=== PATIENT | female | born 1935 | race Caucasian/White ===

== ENCOUNTER → 2020-03-22 12:31 | Outpatient (BNVA) | payer MEDICARE, OTHER, SELFPAY | PROVIDERS: Family Provider Family Medicine; PCP Family Medicine; Visit Provider Dermatology | DX: B00.2 Herpesviral gingivostomatitis and pharyngotonsillitis (principal) | CPT/HCPCS: 87529 ==

== ENCOUNTER 2021-06-15 02:37 | Inpatient (IN) | payer MEDICARE, OTHER, SELFPAY ==
[2021-06-15] VITALS (16 sets, daily range): BP systolic 100–161; BP diastolic 37–77; PULSE 60–71; RESP 14–20; TEMP 36.4–37.1; O2SAT 89–99; BMI 27.4
--- NOTE | 2021-06-15 02:40 | CTR_ITS ---
PROCEDURE INFORMATION: Exam: CT Abdomen And Pelvis With Contrast Exam date and time: 06/15/2021 3:34 AM Age: 85 years old Clinical indication: Nausea and vomiting; Prior surgery; Surgery type: Hysterectomy. ; Patient HX: C/O of severe n/v with diarrhea. ; Additional info: Abd pain TECHNIQUE: Imaging protocol: Computed tomography of the abdomen and pelvis with contrast. Radiation optimization: All CT scans at this facility use at least one of these dose optimization techniques: automated exposure control; mA and/or kV adjustment per patient size (includes targeted exams where dose is matched to clinical indication); or iterative reconstruction. Contrast material: OMNI 300; Contrast volume: 95 ml; Contrast route: INTRAVENOUS (IV); COMPARISON: CR Abdomen Series Acute [id number] 01/15/2017 7:57 PM RADIATION DOSE METRICS: Total DLP (mGy-cm): 1401.94 FINDINGS: Lungs: There are hazy and strandy opacities present in the lower lobes bilaterally likely representing atelectasis versus parenchymal and pleural scarring. There is a 7.7 mm pulmonary nodularity seen in the right lung base posteriorly. Liver: There are small hypoattenuation cystic lesions seen within the liver, the largest seen in the left hepatic lobe measuring 7.7 mm. Gallbladder and bile ducts: Normal. No calcified stones. No ductal dilation. Pancreas: Normal. No ductal dilation. Spleen: Normal. No splenomegaly. Adrenal glands: Normal. No mass. Kidneys and ureters: Normal. No hydronephrosis. Stomach and bowel: There are nondilated small bowel loops present containing fluid and some air-fluid levels and air-fluid level seen in the ascending colon, findings may represent a diffuse ileus. Appendix: The appendix is visualized and is normal in configuration. Intraperitoneal space: Unremarkable. No free air. No significant fluid collection. Arteries: Unremarkable. No abdominal aortic aneurysm. Lymph nodes: Unremarkable. No enlarged lymph nodes. Urinary bladder: Unremarkable as visualized. Reproductive: Status post hysterectomy. 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 Soft tissues: Unremarkable. CT/CT abdomen pelvis w con* [id number] IMPRESSION: 1. Nondilated small and large bowel loops containing fluid and air fluid levels could represent a diffuse ileus. 2. Multiple small benign hepatic cysts are seen, the largest seen in the left hepatic lobe measuring 7.7 mm. No further workup needed. 3. A 7.7 mm pulmonary nodularity is present in the right lung base posteriorly. For patients at low risk (minimal or absent history of smoking and of other known risk factors), recommend CT Chest at 6-12 months, then consider CT Chest at 18-24 months. For patients at high risk (history of smoking or of other known risk factors), recommend CT Chest at 6-12 months, then CT Chest at 18-24 months. (Reference: Shaila) REFERENCES: Shaila Roberts, et al. Guidelines for Management of Incidental Pulmonary Nodules Detected on CT Images: From the Fleischner Society 2017. Radiology. 2017;284(1):228-243.
--- NOTE | 2021-06-15 02:41 | W.ED.NAVMDI ---
HPI - Nausea/Vomiting/Diarrhea General: Chief complaint: Nausea/Vomiting/Diarrhea Stated complaint: N/V/D Time Seen by Provider: 06/15/21 02:39 Source: patient Mode of arrival: ambulatory Limitations: no limitations History of Present Illness: 85-year-old female who states that since 9 PM has had extreme nausea vomiting and diarrhea. States she had all multiple episodes of vomiting with no improvement. States she is having abdominal cramping from the vomiting as well. She denies any fevers denies any worsening improving factors. Denies any blood in her vomit or stool. Denies any chest pain or shortness of breath Associated nausea: Yes Associated symtoms: Reports nausea; Denies chest pain, dysuria or headache(s) Review of Systems Const: Denies: fever(s), chills, body aches or change in appetite Eyes: Denies: blurry vision or eye discomfort ENMT: Denies: throat pain or dental pain Card: Denies: chest pain Resp: Denies: dyspnea GI: Reports: nausea, vomiting and diarrhea : Denies: dysuria Musc: Denies: neck pain or back pain Skin/Breast: Denies: rash Neuro: Denies: headache(s) Psych: Denies: depression Jarad/Lymph: Denies: easy bruising All/Imm: Denies: urticaria PFSH ED PFSH: Medical History HTN (hypertension) Hyperlipidemia Hypothyroid Surgical History H/O: hysterectomy Family History Other Cancer Hypertension Social History Smoking and tobacco status: never smoked Alcohol intake: never Physical Exam Const: COMMON NORMALS: no acute distress, patient oriented x3 and healthy appearing HENMT: COMMON NORMALS: normocephalic and atraumatic HEAD & SCALP: normocephalic and atraumatic Eye: COMMON NORMALS: Equal, round and reactive pupils present and EOMs intact bilaterally PUPIL: Yes Equal, round and reactive pupils present Neck/C-Spine: COMMON NORMALS: full ROM and supple Chest: COMMONS NORMALS: normal inspection of the chest and normal palpation of entire chest wall Resp: COMMON NORMALS: normal respiratory effort, No retractions, No use of accessory muscles and clear to auscultation bilaterally AUSCULTATION: clear to auscultation bilaterally Cardio: COMMON NORMALS: regular rate, regular rhythm and No murmurs present (Cardio) RATE: regular rate RHYTHM: regular rhythm GI: COMMON NORMALS: Normal to inspection, nondistended, normoactive bowel sounds present, Soft to palpation, non-tender and no masses PALPATION: Yes Soft to palpation Extremity: COMMON NORMALS: normal to inspection and full ROM Neuro: COMMON NORMALS: patient oriented x3, moves all extremities and no focal motor deficits Psych: COMMON NORMALS: mental status grossly normal, Normal thought process present and cooperative THOUGHT PROCESS: Normal thought process present Skin: COMMON NORMALS: no rashes or lesions noted and no wounds GENERAL SKIN EXAM: no rashes or lesions noted Course Vital Signs: Vital signs: Vital Signs Temperature 98.7 F 06/15/21 02:39 Pulse Rate 61 06/15/21 05:00 Respiratory Rate 20 H 06/15/21 05:00 Blood Pressure 129/56 06/15/21 05:00 Pulse Oximetry 97 06/15/21 05:00 MDM - Nausea/Vomiting/Diarrhea Medical Decision Making Patient presents here with vomiting along with diarrhea she is feeling improved here after fluids and nausea medicine. She still has quite a bit of weakness. I did try to ambulate her in her room and she could only take 2 steps she states she felt too weak to walk. She does live home alone likely having some weakness due to dehydration she has no signs of a stroke here no headache. I spoke to hospitalist and will admit for observation. Lab Data : 06/15/21 02:30 06/15/21 02:30 Radiology Impressions Abdomen/Pelvis CT 06/15/21 02:40 IMPRESSION: 1. Nondilated small and large bowel loops containing fluid and air fluid levels could represent a diffuse ileus. 2. Multiple small benign hepatic cysts are seen, the largest seen in the left hepatic lobe measuring 7.7 mm. No further workup needed. 3. A 7.7 mm pulmonary nodularity is present in the right lung base posteriorly. For patients at low risk (minimal or absent history of smoking and of other known risk factors), recommend CT Chest at 6-12 months, then consider CT Chest at 18-24 months. For patients at high risk (history of smoking or of other known risk factors), recommend CT Chest at 6-12 months, then CT Chest at 18-24 months. (Reference: Shaila) REFERENCES: Shaila Roberts et al. Guidelines for Management of Incidental Pulmonary Nodules Detected on CT Images: From the Fleischner Society 2017. Radiology. 2017;284(1):228-243. Chest X-Ray 06/15/21 04:22 IMPRESSION: Indistinct pulmonary vasculature and some increased interstitial opacities predominately in the mid lower hemithoraces suggests pulmonary edema. Laboratory Results WBC 9.3 10^3/uL (4.0-10.0) 06/15/21 02:30 RBC 4.44 10^6/uL (4.1-5.3) 06/15/21 02:30 Hgb 13.5 g/dL (11.5-15.3) 06/15/21 02:30 Hct 40.9 % (37.0-47.0) 06/15/21 02:30 MCV 92.1 fl (81-99) 06/15/21 02:30 MCH 30.4 pg (28.0-34.0) 06/15/21 02:30 MCHC 33.0 g/dL (30.0-36.0) 06/15/21 02:30 RDW 12.3 % (12.1-15.1) 06/15/21 02:30 Plt Count 232 10^3/cmm (130-400) 06/15/21 02:30 MPV 8.7 fL (7.4-10.4) 06/15/21 02:30 Neut % (Auto) 87.9 % 06/15/21 02:30 Lymph % (Auto) 6.7 % 06/15/21 02:30 [place] % (Auto) 4.5 % 06/15/21 02:30 Eos % (Auto) 0.2 % 06/15/21 02:30 Baso % (Auto) 0.3 % 06/15/21 02:30 Neut # (Auto) 8.20 10^3/uL (1.8-7.7) H 06/15/21 02:30 Lymph # (Auto) 0.6 10^3/uL (0.8-4.8) L 06/15/21 02:30 [place] # (Auto) 0.4 10^3/uL (0.2-0.9) 06/15/21 02:30 Eos # (Auto) 0.0 10^3/uL (0.0-0.8) 06/15/21 02:30 Baso # (Auto) 0.0 10^3/uL (0.0-0.1) 06/15/21 02:30 Nucleated RBC % (auto) 0 % 06/15/21 02:30 Nucleated RBCs # 0.0 /100WBC 06/15/21 02:30 Sodium 132 mmol/L (136-145) L 06/15/21 02:30 Potassium 3.8 mmol/L (3.5-5.1) 06/15/21 02:30 Chloride 96 mmol/L (98-107) L 06/15/21 02:30 Carbon Dioxide 25 mmol/L (22-29) 06/15/21 02:30 Anion Gap 14.8 (5-19) 06/15/21 02:30 BUN 16 mg/dL (8-23) 06/15/21 02:30 Creatinine 0.6 mg/dL (0.5-0.9) 06/15/21 02:30 GFR Calculation Not Reportable 06/15/21 02:30 Glucose 158 mg/dL (65-115) H 06/15/21 02:30 Calculated Osmolality 278 mOsm/kg (285-295) L 06/15/21 02:30 Calcium 8.6 mg/dL (8.5-10.5) 06/15/21 02:30 Total Bilirubin 0.4 mg/dL (0.15-1.2) 06/15/21 02:30 AST 21 U/L (0-32) 06/15/21 02:30 ALT 15 U/L (0-33) 06/15/21 02:30 Alkaline Phosphatase 82 IU/L (35-105) 06/15/21 02:30 Troponin T Baseline 12 ng/L (0-10) H 06/15/21 02:30 Troponin T 120 Minute 12.48 ng/L (0-10) H 06/15/21 04:30 Delta Troponin T 0.48 ABS# (0-10) 06/15/21 04:30 NT-Pro-B Natriuret Pep 288 pg/mL (0-450) 06/15/21 02:30 Total Protein 6.9 g/dL (6.6-8.7) 06/15/21 02:30 Albumin 5.0 g/dL (3.5-5.2) 06/15/21 02:30 Globulin 1.9 g/dL (1.3-4.6) 06/15/21 02:30 Lipase 22 U/L (13-60) 06/15/21 02:30 Urine Color Yellow (Yellow) 06/15/21 04:00 Urine Appearance Clear (CLEAR) 06/15/21 04:00 Urine pH 7 (5-7) 06/15/21 04:00 Ur Specific [place] 1.010 (1.005-1.030) 06/15/21 04:00 Urine Protein Neg (Negative) 06/15/21 04:00 Urine Glucose (UA) Trace (Normal) H 06/15/21 04:00 Urine Ketones Negative (Negative) 06/15/21 04:00 Urine Blood Neg (Negative) 06/15/21 04:00 Urine Nitrate Negative (Negative) 06/15/21 04:00 Urine Bilirubin Neg (Negative) 06/15/21 04:00 Urine Urobilinogen Norm mg/dL (Negative) 06/15/21 04:00 Ur Leukocyte Esterase Negative (Negative) 06/15/21 04:00 EKG Data EKG 1: I personally reviewed and interpreted this EKG as follows: EKG interpretation date: 06/15/21 EKG interpretation time: 04:32 Interpretation: sinus alina hr [address] or t wave abnormalities qrs 922 qtc 428 Discharge Plan Discharge Patient Disposition: Admitted As Inpatient Clinical Impression: Vomiting, Diarrhea, Weakness Condition: Stable Discharge Diet: Advance as tolerated Discharge Activity: Resume usual activity Coding Level of Care Code ED Shearing Machine Tender for Chg Fwd Exam Comprehensive
[2021-06-15] MEDS: ondansetron 2 mg/ML SDV 2 mL 4 MG IVP ×2 (02:49→04:14)
[2021-06-15] MEDS: sodium chloride 0.9% 1,000 ML 999 ML IV (02:49)
[2021-06-15 02:50] LABS: Basophils % 0.3 %; Eosinophils % 0.2 %; Hematocrit 40.9 % (37.0-47.0); Hemoglobin 13.5 g/dL (11.5-15.3); Lymphocytes # 0.6 10^3/uL (0.8-4.8); Lymphocytes % 6.7 %; Mean Corpuscular Hemoglobin 30.4 pg (28.0-34.0); Mean Corpuscular Volume 92.1 fl (81-99); Mean Platelet Volume 8.7 fL (7.4-10.4); Monocytes # 0.4 10^3/uL (0.2-0.9); Monocytes % 4.5 %; Neutrophils % 87.9 %; Nucleated Red Blood Cells % 0 %; Platelet Count 232 10^3/cmm (130-400); Red Blood Count 4.44 10^6/uL (4.1-5.3); Red Cell Distribution Width 12.3 % (12.1-15.1); White Blood Count 9.3 10^3/uL (4.0-10.0)
[2021-06-15] MEDS: morphine 4 mg/mL SDV 1 mL IVP (02:50)
[2021-06-15 03:07] LABS: Alanine Aminotransferase 15 U/L (0-33); Alkaline Phosphatase 82 IU/L (35-105); Anion Gap 14.8 (5-19); Aspartate Amino Transferase 21 U/L (0-32); Blood Urea Nitrogen 16 mg/dL (8-23); Calcium 8.6 mg/dL (8.5-10.5); Carbon Dioxide 25 mmol/L (22-29); Chloride 96 mmol/L (98-107); Globulin 1.9 g/dL (1.3-4.6); Glucose 158 mg/dL (65-115); Lipase 22 U/L (13-60); Osmolality Calculated 278 mOsm/kg (285-295); Potassium 3.8 mmol/L (3.5-5.1); Sodium 132 mmol/L (136-145); Total Bilirubin 0.4 mg/dL (0.15-1.2); Total Protein 6.9 g/dL (6.6-8.7)
[2021-06-15] MEDS: iohexol 300 mg/mL 100 mL Btl IV (03:36)
[2021-06-15 04:17] LABS: Add Urine Microscopic? NO; Charge for UA Resulting for Rev
--- NOTE | 2021-06-15 04:21 | ECG_ITS ---
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 Measurements Intervals [place] Rate: 56 P: 62 CT: 188 QRS: -16 QRSD: 92 T: -20 QT: 435 QTc: 423 Interpretive Statements SINUS BRADYCARDIA NONSPECIFIC ST & T-WAVE ABNORMALITY Compared to ECG 01/26/2017 19:16:01 T-wave abnormality now present ST (T wave) deviation no longer present Electronically Signed On 06-15-2021 15:00:45 CDT by Sandra Brandt M.D. [id number]
--- NOTE | 2021-06-15 04:22 | XRR_ITS ---
PROCEDURE INFORMATION: Exam: XR Chest Exam date and time: 06/15/2021 4:25 AM Age: 85 years old Clinical indication: Pain; Chest pressure; Patient HX: Patient C/O chest discomfort with mild hypoxia on monitor while in er. ; Additional info: Cp TECHNIQUE: Imaging protocol: XR of the chest. Views: 1 view. COMPARISON: CR Chest 1 [place] [id number] 01/26/2017 7:27 PM FINDINGS: Lungs: There is a background emphysema and pulmonary fibrosis. The. There is mild indistinctness of the pulmonary vasculature and increased interstitial opacity seen predominately within the mid lower hemithoraces, findings suggesting pulmonary edema. Pleural spaces: Unremarkable. No pleural effusion. No pneumothorax. Heart/Mediastinum: Unremarkable. No cardiomegaly. Bones/joints: Unremarkable. XR/XR chest 1V portable [id number] IMPRESSION: Indistinct pulmonary vasculature and some increased interstitial opacities predominately in the mid lower hemithoraces suggests pulmonary edema.
[2021-06-15 04:24] LABS: Bilirubin Urine Neg (Negative); Blood Urine Neg (Negative); Glucose Urine UA Trace (Normal); Ketones Urine Negative (Negative); Leukocyte Esterase Urine Negative (Negative); Nitrate Urine Negative (Negative); Protein Urine Neg (Negative); Urine Appearance Clear (CLEAR); Urine Color Yellow (Yellow); Urobilinogen Urine Norm (Negative); pH Urine 7 (5-7)
--- NOTE | 2021-06-15 04:24 | PC.NURSE ---
Pt reports left chest discomfort. Son reports pt has been having intermit CP for past few weeks. Dr العراقي updated
[2021-06-15 04:41] LABS: Troponin(5th) Baseline 12 ng/L (0-10)
--- NOTE | 2021-06-15 04:43 | PC.NURSE ---
Pt placed on O2 2L NC for Sp02 88-89% RA. Dr العراقي updated
[2021-06-15 05:04] LABS: Troponin 5 2HR 12.48 ng/L (0-10)
[2021-06-15 05:05] LABS: Troponin 5 2HR Delta 0.48 ABS# (0-10)
[2021-06-15 05:34] LABS: NT Pro B Type Natriuretic Pept 288 pg/mL (0-450)
--- NOTE | 2021-06-15 06:08 | USCV_ITS ---
Deja Siegel Age: 85 Gender: F : 1935 Exam Date: 06/15/2021 06:42 Ordering Phys: Narda Velarde DO Technologist: Exam Location: [facility] [place] Indication: chest pain BP: 106 / 37 HR: 58 Rhythm: Sinus Technical Quality: Adequate MEASUREMENTS (Male / Female) Normal Values 2D ECHO LV Diastolic Diameter PLAX 4.3 cm 4.2 - 5.9 / 3.9 - 5.3 cm LV Systolic Diameter PLAX 2.4 cm IVS Diastolic Thickness 1.0 cm 0.6 - 1.0 / 0.6 - 0.9 cm IVS Systolic Thickness 1.4 cm LVPW Diastolic Thickness 1.0 cm 0.6 - 1.0 / 0.6 - 0.9 cm LVPW Systolic Thickness 1.2 cm LVOT Diameter 2.1 cm LV Ejection Fraction 2D Teich 75.2 % LV Ejection Fraction MOD 2C 59.8 % LV Ejection Fraction 2C AL 60.1 % LA Diameter 3.3 cm M-MODE Aortic Annulus Diameter 1.9 cm LA Ao Ratio MM 2.0 MV E Point Septal Separation 0.7 cm DOPPLER AV Peak Velocity 119.0 cm/s LVOT Peak Velocity 92.0 cm/s AV Area Cont Eq vti 2.5 cm squared AV Area Cont Eq pk 2.7 cm squared MV Area PHT 3.9 cm squared Mitral E to A Ratio 1.3 MV E' Velocity 74.0 cm/s Mitral E to MV E' Ratio 13.9 Mitral E to LV E' Lateral Ratio 13.6 Mitral E to LV E' Septal Ratio 14.3 TR Peak Velocity 221.7 cm/s TR Peak Gradient 19.7 mmHg TV Peak E Velocity 83.0 cm/s Right Atrial Pressure 3.0 mmHg Pulmonary Artery Systolic Pressu 22.7 mmHg PV Peak Velocity 95.0 cm/s FINDINGS Left Ventricle Normal left ventricular size, systolic function and wall thickness, with no regional wall motion abnormalities. Left ventricular ejection fraction is estimated at 65 %. Normal diastolic function. Right Ventricle Normal right ventricular size and systolic function. Right ventricular systolic pressure 26 mmHg. Right Atrium Normal right atrial size. Right atrial pressure estimated at 3 mm Hg. Left Atrium Mildly increased left atrial size. Mitral Valve Structurally normal mitral valve. Mildly thickened mitral valve. No mitral valve stenosis. Trace mitral valve regurgitation. Aortic Valve Structurally normal trileaflet aortic valve. No aortic valve stenosis. No aortic valve regurgitation. Tricuspid Valve Structurally normal tricuspid valve. No tricuspid valve regurgitation. Pulmonic Valve Structurally normal pulmonic valve. No pulmonary valve stenosis. No pulmonary valve regurgitation. Pericardium No pericardial effusion. Aorta Normal size aortic root and proximal ascending aorta. Normal- sized inferior vena cava. CONCLUSIONS 1. Normal left ventricular size, systolic function and wall thickness, with no regional wall motion abnormalities. Left ventricular ejection fraction is estimated at 65 %. Normal diastolic function. 2. Mildly increased left atrial size. 3. Pulmonary artery pressure estimated at 26 mm Hg. 4. When compared to previous echocardiogram dated 01/16/2017, pulmonary pressure seems to have decreased. Sandra Brandt MD (Electronically Signed) Final Date: 15 June 2021 13:47 S
--- NOTE | 2021-06-15 06:10 | P.HP_ITS ---
Providers/Chief Complaint Primary Care Provider: Cory Preston MD Chief Complaint: N/V/D History of Present Illness The patient is an 85-year-old female who presented to [place] of dyspnea as well as generalized weakness. The patient admits to 24-hour history onset of diarrhea. She states that she took antibiotics approximate 2 months prior to hospitalization for sinus infection. She is equivocal as to whether he has been expansive chest pain. The patient also been experience and nausea however she denies fever, rigors, vomiting, cough, wheeze, abdominal pain, myalgia, lightheadedness, dizziness, diaphoresis, palpitations, sense of rapid heartbeat, sensation knee regular heartbeat. She denies peripheral edema or orthopnea. She presents for further evaluation Review of Systems General: Reports: 10 or more systems reviewed and unremarkable except in HPI and below Medications/Allergies Home Medications Medication Instructions Recorded Confirmed Last Taken Type aspirin 81 mg tablet,delayed 81 mg PO DAILY 03/15/20 03/15/20 Unknown History release (Adult Aspirin Regimen) atenolol 50 mg tablet 50 mg PO DAILY 03/15/20 03/15/20 Unknown History levothyroxine 88 mcg capsule 88 mcg PO DAILY 03/15/20 03/15/20 Unknown History simvastatin 20 mg tablet 20 mg PO DAILY 03/15/20 03/15/20 Unknown History spironolactone 25 1 tab PO DAILY 03/15/20 03/15/20 Unknown History mg-hydrochlorothiazide 25 mg tablet hydrocortisone 1 %-iodoquinol 1 % 1 applic TOPICAL TID #28.4 g 04/09/20 Unknown Rx topical cream ondansetron 4 mg disintegrating 4 mg PO Q6H PRN #14 tab 06/15/21 Unknown Rx tablet Allergies Allergy/AdvReac Type Severity Reaction Status Date / Time Sulfa (Sulfonamide Allergy rash Verified 03/22/20 12:46 Antibiotics) PFSH Acute PFSH: Medical History HTN (hypertension) Hyperlipidemia Hypothyroid Surgical History H/O: hysterectomy Family History Other Cancer Hypertension Social History Smoking and tobacco status: never smoked Alcohol intake: never Vitals/I&O/Wt Last Vital Signs Temp 98.7 F 06/15/21 02:39 Pulse 61 06/15/21 05:00 Resp 20 H 06/15/21 05:00 BP 129/56 06/15/21 05:00 Pulse Ox 97 06/15/21 05:00 Weight last 48 hrs Weight 77.111 kg Physical Exam Narrative: General: -Alert -No acute distress -No dyspnea -No tachypnea Head: -Atraumatic -Normocephalic Eyes: -Pupils equally round and reactive to light and accommodation -Extraocular muscles intact Neurological: -Cranial nerves II-XII intact Neck: -No jugular venous distention -No thyromegaly -No cervical lymphadenopathy Heart: -Regular rate -Regular rhythm -No murmurs -No gallops -No rubs Lungs: -No wheeze -No rhonchi -No rales ? Abdomen: -Normal bowel sounds in all four quadrants -No rebound -No guarding -No tenderness Extremities: -2/4 pulse in all four extremities -No clubbing -No cyanosis -No edema -No calf tenderness present bilaterally -Negative Abiodun?s sign bilaterally Musculoskeletal: -5/5 bilateral upper extremity strength -5/5 bilateral lower extremity strength -Sensorium of bilateral upper extremities are equal and intact -Sensorium of bilateral lower extremities are equal and intact ? Additional Details / Additional Findings / Exceptions / Miscellaneous: Data : 06/15/21 02:30 06/15/21 02:30 A&P Assessment and plan (1) Vomiting: Status: Acute Plan Generalized weakness. This may be a sequelae of possible dehydration from gastroenteritis. Physical therapy consult pending Query ileus. Nothing by mouth. No IV fluids at this time given chest x-ray findings of questionable pulmonary edema Query gastroenteritis. Although the patient's CT of the abdomen and pelvis demonstrates a questionable ileus, the patient Cates that she has been experience and diarrhea. Will check stool C. difficile, stool WBC, stool culture, stool ova and parasites. No IV fluids given chest x-ray findings of questionable pulmonary edema Query pulmonary edema. Will monitor patient on telemetry and checks her cardiac enzymes. Strict I/O. Daily weight. Echocardiogram pending Hyponatremia. This may be iatrogenic due to the antihypertensive she takes at home. Will monitor sodium level intermittently Right lower lobe pulmonary nodule. Patient requires CT chest with IV contrast 6 months post discharge however even in the Cates that malignancy was detected given her age, she would not be a an ideal candidate for treatment/therapy Hypothyroid and. TSH, free T4 pending Nonobstructive coronary artery disease Hyperlipidemia Hypertension Obesity. The patient will be counseled regarding lifestyle modification DVT Proflex is. Lovenox 30 Milgrom subcu tensely daily Attestations Medical Necessity Statement*: Patient's anticipated length of stay is greater than 2 midnights chiefly due to her ileus Coding Level of Care Code Acute Radio Equipment Installer for Chg Fwd Diagnoses Vomiting R11.10
--- NOTE | 2021-06-15 06:21 | ECG_ITS ---
[facility] Test Date: 2021-06-15 Pat Name: Deja Siegel Department: Room: Gender: Female Eligibility Clerk: : 1935 Requested By: Chet العراقي Order Number: [id number] Tonio MD: Sandra Brandt M.D. Measurements Intervals [place] Rate: 64 P: 69 [place]: 186 QRS: -30 QRSD: 100 T: 67 QT: 425 QTc: 440 Interpretive Statements SINUS RHYTHM BORDERLINE LEFT AXIS DEVIATION [QRS AXIS < -20] NONSPECIFIC T-WAVE ABNORMALITY Compared to ECG 06/15/2021 04:32:10 Sinus bradycardia no longer present T-wave abnormality still present Electronically Signed On 06-15-2021 15:06:08 CDT by Sandra Brandt M.D. [id number]
[2021-06-15 06:44] LABS: Thyroid Stimulating Hormone 7.65 uIU/mL (0.27-4.20)
--- NOTE | 2021-06-15 07:28 | PC.NURSE ---
upon transfer pt is in nad.
--- NOTE | 2021-06-15 09:12 | ECG_ITS ---
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 Measurements Intervals [place] Rate: 62 P: 67 [place]: 184 QRS: -22 QRSD: 93 T: 42 QT: 417 QTc: 424 Interpretive Statements SINUS RHYTHM BORDERLINE LEFT AXIS DEVIATION [QRS AXIS < -20] NONSPECIFIC ST & T-WAVE ABNORMALITY Compared to ECG 06/15/2021 06:10:41 No significant changes Electronically Signed On 06-15-2021 15:03:27 CDT by Sandra Brandt M.D. [id number]
[2021-06-15] MEDS: acetaminophen 325 mg Tablet 650 MG PO ×3 (09:53→22:36)
[2021-06-15] MEDS: enoxaparin 30 mg/0.3 mL Syringe SUBCUT (09:53)
--- NOTE | 2021-06-15 12:08 | ECG_ITS ---
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 Measurements Intervals [place] Rate: 60 P: 72 [place]: 183 QRS: -22 QRSD: 92 T: 21 QT: 440 QTc: 443 Interpretive Statements SINUS RHYTHM BORDERLINE LEFT AXIS DEVIATION [QRS AXIS < -20] NONSPECIFIC ST & T-WAVE ABNORMALITY Compared to ECG 06/15/2021 09:11:18 No significant changes Electronically Signed On 06-15-2021 15:03:12 CDT by Sandra Brandt M.D. [id number]
--- NOTE | 2021-06-15 13:32 | P.MISC_ITS ---
Miscellaneous Note Purpose of Documentation: Progress note Note: Seen this morning. She has not had a bowel movement since she came in. She states she had potato salad from [facility] yesterday that could have caused her diarrhea. He says she only had 1 episode of loose stool. However she has back pain and unable to get up on her own when she lays down. Otherwise she is fairly independent. She has been experiencing a little bit of shortness of breath. She states she has a history of coronary artery disease since 2017. She also takes a water pill at home which is spironolactone. Has been compliant. Has not gone and seen her doctor in quite a while now. She states her in March and since then she has not really focus much on herself. Patient lives alone. Wears hearing aids bilaterally. I will give 1 dose of IV Lasix as there is evidence of edema on her x-ray. Await cardiac echo Questionable ileus. We will repeat KUB this morning. The patient is passing gas and KUB looks better we will advance her diet. Till then keep her n.p.o. Obtain stool culture for bacterial and ova parasite, C. difficile. Need to observe patient and monitor further. Rest of management according to current HPI document. Disposition: Will require monitoring in hospital tonight due to shortness of breath and pulmonary edema. Potential discharge in a.m.
[2021-06-15] MEDS: FUROsemide 10 mg/mL SDV 4mL 40 MG IVP (14:03)
[2021-06-16] VITALS (8 sets, daily range): BP systolic 124–146; BP diastolic 62–74; PULSE 59–110; RESP 16–18; TEMP 36.3–37; O2SAT 95–97
[2021-06-16] MEDS: acetaminophen 325 mg Tablet 650 MG PO ×3 (04:51→18:43)
[2021-06-16 06:03] LABS: Basophils % 0.2 %; Eosinophils % 0.5 %; Hematocrit 35.1 % (37.0-47.0); Hemoglobin 11.7 g/dL (11.5-15.3); Lymphocytes # 0.5 10^3/uL (0.8-4.8); Lymphocytes % 9.3 %; Mean Corpuscular HGB Conc 33.3 g/dL (30.0-36.0); Mean Corpuscular Hemoglobin 30.8 pg (28.0-34.0); Mean Corpuscular Volume 92.4 fl (81-99); Mean Platelet Volume 8.5 fL (7.4-10.4); Monocytes # 0.4 10^3/uL (0.2-0.9); Monocytes % 6.2 %; Neutrophils # 4.82 10^3/uL (1.8-7.7); Neutrophils % 83.5 %; Nucleated Red Blood Cells % 0 %; Platelet Count 204 10^3/cmm (130-400); Red Cell Distribution Width 12.5 % (12.1-15.1); White Blood Count 5.8 10^3/uL (4.0-10.0)
[2021-06-16 06:23] LABS: Anion Gap 13.5 (5-19); Blood Urea Nitrogen 13 mg/dL (8-23); Calcium 8.5 mg/dL (8.5-10.5); Carbon Dioxide 25 mmol/L (22-29); Chloride 94 mmol/L (98-107); Glucose 119 mg/dL (65-115); Magnesium 2.2 mg/dL (1.7-2.3); Osmolality Calculated 269 mOsm/kg (285-295); Potassium 3.5 mmol/L (3.5-5.1); Sodium 129 mmol/L (136-145)
--- NOTE | 2021-06-16 07:25 | XRR_ITS ---
PROCEDURE INFORMATION: Exam: XR Abdomen Exam date and time: 06/16/2021 8:02 AM Age: 85 years old Clinical indication: Abdominal tenderness; Additional info: Ileus TECHNIQUE: Imaging protocol: XR of the abdomen. Views: Frontal supine view of the abdomen. 1 View. COMPARISON: CT abdomen pelvis w con* [id number] 06/15/2021 3:34 AM FINDINGS: Gastrointestinal tract: Nonobstructive bowel gas pattern. Intraperitoneal space: No free air. Bones/joints: Mild dextrocurvature of the lumbar spine and multilevel degenerative changes seen. XR/XR KUB portable [id number] IMPRESSION: Nonobstructive bowel gas pattern.
[2021-06-16] MEDS: atorvastatin 40 mg Tablet 20 MG PO (08:58)
[2021-06-16] MEDS: enoxaparin 30 mg/0.3 mL Syringe SUBCUT (08:58)
[2021-06-16] MEDS: aspirin 81 mg EC Tablet PO (08:59)
[2021-06-16] MEDS: atenolol 50 mg Tablet PO (08:59)
[2021-06-16] MEDS: levothyroxine 88 mcg Tablet PO (08:59)
--- NOTE | 2021-06-16 09:33 | PC.NURSE ---
Spoke with patient this morning and she is upset that she isn't able to eat or drink anything as well as not being placed on IV fluids. The shift production associate nurse told me during report that she was going to try to have family members sneak her food today. Dr. Camacho notified of this and the patient's request to speak with him regarding plan of care.
--- NOTE | 2021-06-16 12:15 | ECG_ITS ---
[facility] Test Date: 2021-06-17 Pat Name: Deja Siegel Department: Room: 260 Gender: Female Hotel Clerk: Bessie Jacobsen : 1935 Requested By: Jennifer Camacho Order Number: [id number] Tonio MD: Nick Kraft M.D. Interpretive Statements NAME OF STUDY: LEXISCAN SESTAMIBI STRESS TEST INDICATION: Chest Pain, PROCEDURE: At the baseline, the EKG revealed normal sinus rhythm with a poor R wave progression. Left axis deviation. Some nonspecific T wave changes. The baseline blood pressure was 159/59 mm Hg with a heart rate of 71 beats/min. Lexiscan was infused over a period of 20 seconds. A total of 0.4 milligrams of Lexiscan was infused. The stress phase was continued for a total of 5 minutes. Heart rate at the end of the stress phase was 89 with a blood pressure 151/56. The EKG at the peak infusion revealed no significant changes. Sestamibi was injected 20 seconds after the Lexiscan infusion. Blood pressure at the end of the recovery phase was 152/51 with a heart rate of 83 per minute. CONCLUSION: 1. No significant EKG changes with the LexiScan infusion 2. No LexiScan induced chest pain or cardiac arrhythmia 3. Normal blood pressure and heart rate response 4. Sestamibi/sestamibi perfusion scan pending; see separate report. Electronically Signed On 06-18-2021 8:40:30 CDT by Nick Kraft M.D. [email or web address]
--- NOTE | 2021-06-16 12:39 | PC.NURSE ---
Spoke with patient and family. Both are concerned about the constant pain in her back. Patient told me upon admission that she hasn't fallen, but she now believes she may have fallen and is wanting to speak with the physician regarding what her options are for testing. Dr. Camacho has been informed via [employer].
--- NOTE | 2021-06-16 14:21 | P.PN_ITS ---
Subjective Subjective: Seen this morning. Patient states that her abdomen feels a lot better and she is hungry and would like to eat. She was fed a sandwich and given juice which she tolerated really well. Patient also states that she has been having chest pains on exertion while gardening for the last few weeks. She has not seen her doctor in [address] Kraft which she followed up with for cardiology. She does have a stent in place. She endorses shortness of breath on exertion. There was also pulmonary edema on admission which required Lasix. Echo was done which showed a normal EF. Delta troponin negative. She also states that she has chronic hyponatremia and 129 130 range is normal for her. She has not had a bowel movement since she came to the hospital. Vitals/I&O/Wt Last Vital Signs Temp 97.7 F 06/16/21 12:25 Pulse 65 06/16/21 12:25 Resp 18 06/16/21 12:25 BP 145/73 06/16/21 12:25 Pulse Ox 95 06/16/21 12:25 06/15/21 06/16/21 06/16/21 22:59 06:59 14:59 Intake Total 290 / 290 Balance 290 / 290 Weight last 48 hrs Weight 79.492 kg Weight 77.111 kg Physical Exam Narrative: General: Alert oriented x3, patient seen sitting up in bed appearing comfortable. Denies chest pain at this time. HEENT: Normocephalic, atraumatic, EOMI, breathing comfortably. Cardio: Regular rate rhythm, normal S1-S2, no murmurs Respiratory: Good bilateral air entry, no wheezes no rhonchi appreciated GI: Abdomen soft, nontender, nondistended, bowel sounds + Behavior: Appropriate and cooperative Extremities: no edema, no cyanosis Data : 06/16/21 05:45 06/16/21 05:45 A&P Assessment and plan (1) Hyponatremia: Status: Acute (2) Vomiting: Status: Acute (3) Diarrhea: Status: Acute (4) Weakness: Status: Acute (5) Chest pain: Status: Acute (6) CAD (coronary artery disease): Status: Acute (7) Gastroenteritis: Status: Acute Plan #Chest pain on exertion for last few weeks. #Generalized weakness/dehydration #Acute gastroenteritis with possible ileus, diarrhea. #History of CAD with PCI 2017 #Pulmonary edema on x-ray at admission #Chronic hyponatremia #Right lower pulmonary nodule #Hypothyroidism #Hyperlipidemia #Hypertension -Patient was given Lasix in ER and again yesterday. Pulmonary edema has resolved. -Echo did not show any wall motion abnormalities ? Ileus has resolved, diarrhea has resolved. Able to tolerate a diet ? Chronic hyponatremia at baseline ? Levothyroxine 88 MCG daily due to TSH 7.5. ? Will need outpatient follow-up for pulmonary nodule. ? After long discussion with the patient it was decided to go for a cardiac stress test in the morning. ? N.p.o. at midnight DVT prophylaxis: Lovenox CODE STATUS: Limited resuscitation: Okay with CPR medications ACLS protocol but does not want to be intubated. Patient is a DNI. Son at bedside. All questions were answered. Attestations Medical Necessity Statement*: Stress test in a.m. potential discharge in the morning. Coding Level of Care Code Acute Chief Embalmer for Patricia Theodore Diagnoses Hyponatremia E87.1 Vomiting R11.10 Diarrhea R19.7 Weakness R53.1 Chest pain R07.9 CAD (coronary artery disease) I25.10 Gastroenteritis K52.9
[2021-06-17] VITALS (7 sets, daily range): BP systolic 121–152; BP diastolic 51–71; PULSE 58–78; RESP 16–18; TEMP 36.4–36.9; O2SAT 94–96
[2021-06-17] MEDS: acetaminophen 325 mg Tablet 650 MG PO (00:15)
[2021-06-17] MEDS: ondansetron 2 mg/ML SDV 2 mL 4 MG IVP (08:14)
[2021-06-17] MEDS: regadenoson 0.4 Mg/5 ml Syringe IVP (08:14)
[2021-06-17] MEDS: atorvastatin 40 mg Tablet 20 MG PO (09:05)
[2021-06-17] MEDS: potassium chloride ER 20 mEq Tablet PO (09:06)
[2021-06-17] MEDS: aspirin 81 mg EC Tablet PO (09:06)
[2021-06-17] MEDS: enoxaparin 30 mg/0.3 mL Syringe SUBCUT (09:06)
[2021-06-17] MEDS: atenolol 50 mg Tablet PO (09:06)
[2021-06-17] MEDS: levothyroxine 88 mcg Tablet PO (09:06)
--- NOTE | 2021-06-17 10:30 | PC.CHAP ---
Pastoral Care Encounter/Spiritual Assessment Type of Contact [] Declined wind operations manager visit [] Patient/Family/Request visit [] Outpatient visit [] Follow-up visit [] Physician referral [] Code/Alert [x] Routine visit [] Staff referral [] Actively dying [] Patient sleeping [] Family support [] [x] Out of room [] Palliative care [] [] Receiving care in room [] Pre-surgical visit [] Trauma [] Long length of stay [] ICU visit [] Other: Relational/Emotional Strength [] Patient feels connected with others/family/visitors/staff [] Distress [] Loneliness/isolation [] Abandonment Spirituality of Patient [] Person of [place] [] Attends Church of their [place] [] Believes in Prayer [] Reads Bible or Advent materials [] There are Spiritual issues to be addressed Operating System Designer Interventions [] Prayer [] Active listening [] Non-anxious presence [] Spiritual/emotional support [] Crisis/trauma care [] Spiritual counseling [] Bereavement support [] Provided bereavement packet [] Provided Bible/devotional materials [] Provided toy/stuffed animal, coloring book to patient or family member [] Provided Communion [] Anointing/[place] [] Salvation [] Completed spiritual assessment [] Other: Impact on Illness or Injury [] Angry [] Fearful [] Anxious [] Often cries [] Exhaustion [] Unable to work [] Unable to attend evangelical [] Unable to walk/stand [] Unable to read [] Unable to drive [] Unable to eat/drink [] Unable to sleep [] Unable to be with family [] Patient intubated [] Other: Summary Time spent with patient
--- NOTE | 2021-06-17 12:15 | NMCV_ITS ---
NM tatiana perf SPECT r/s* [id number] Deja Siegel Age: 85 Gender: F : 1935 Exam Date: 06/17/2021 07:08 Ordering Phys: Jennifer Cmaacho MD Technologist: PETER Cherry Exam Location: [facility] Indications: CHEST PAIN STRESS TEST Please see separate stress test report in [facility] for full findings IMAGE PROTOCOL Rest/Stress 1 Lexiscan Day Radiopharmaceutical Dose (mCi) Administration Site Administered by Rest: Tc-99m 10.8 IV PETER Herbert Sestamibi Stress:Tc-99m 32.8 IV PETER Herbert Sestamibi Rest: 17-Jun-2021 60 Discovery 630 Stress: 17-Jun-2021 30 Discovery 630 0.4mg Lexiscan. Supine position only as patient was unable to lay prone. SPECT RESULTS Technical Quality: Excellent Raw Data Analysis: Normal Image Corrections: No attenuation or motion correction applied Summed Stress Score: 3 Summed Rest Score: 1 Summed Difference Score: 2 PERFUSION FINDINGS A small area of decreased tracer uptake in the mid inferolateral and apical lateral region. Complete reversibility was noted in the mid inferolateral region. FUNCTIONAL RESULTS (calculated via Gated SPECT) Stress Image LV EF (%): 91 Stress EDV (mL):55 TID: 0.84 Stress ESV (mL):5 FUNCTIONAL FINDINGS: Segmental wall motion analysis revealing no gross wall motion abnormalities. IMPRESSIONS 1. Myocardial perfusion imaging revealing small area of moderately decreased tracer uptake in the mid inferolateral and apical lateral region with complete reversibility in the mid inferolateral region, suggestive of ischemia in the distribution of the left circumflex artery. 2. Normal LV ejection fraction of 91%. 3. LV wall motion analysis revealing no gross wall motion normalities. 4. Normal LV volume. No similar previous studies are available for comparison Dr Nick Kraft MD [facility] (Electronically Signed) Final Date: 17 June 2021 17:00 S
--- NOTE | 2021-06-17 15:00 | P.DS_ITS ---
Discharge Providers Date of Admission: 06/15/21 08:20 Date of Discharge: June 17, 2021 Attending Provider at Admission: Jennifer Camacho MD Attending Provider at Discharge: Ajit Toure Primary Care Provider: Cory Preston MD Diagnoses at Discharge Discharge Diagnosis (1) Hyponatremia: Status: Acute (2) Vomiting: Status: Acute (3) Diarrhea: Status: Acute (4) Weakness: Status: Acute (5) Chest pain: Status: Acute (6) CAD (coronary artery disease): Status: Acute (7) Gastroenteritis: Status: Acute Reason for Visit Reason for Visit: N/V/D Hospital Course Hospital Course Please see patient's H&P, consult notes, progress notes and procedure notes for more details. Discharge diagnosis and problem list Generalized weakness.? This may be a sequelae of possible dehydration from gastroenteritis.? Mostly resolved Possible ileus probably secondary to acute gastroenteritis. Resolved. Currently tolerating diet well. No nausea or vomiting. No abdominal pain. Acute gastroenteritis.? Although the patient's CT of the abdomen and pelvis demonstrates a questionable ileus, the patient Cates that she has been experience and diarrhea.? It has resolved. The patient is feeling well tolerating diet well. Does not have dehydration anymore. Eager to go home. She is instructed to come back to emergency room if she develops any new or similar symptoms. She and her family verbalized understanding and agreement. Query pulmonary edema.? Resolved. No respiratory distress. Outpatient follow- up with the primary care physician. Underwent stress test today. Pending cardiology report. If there are any concerning abnormal findings the patient will remain in the hospital and the summary will be updated. In that case this summary will be considered as a progress note for billing purposes. Outpatient follow-up with primary care physician and rubber mold maker Hyponatremia.? The patient reports that this is chronic problem. Her home hydrochlorothiazide is discontinued. Continue outpatient monitoring and follow- up with the primary care physician. Right lower lobe pulmonary nodule.? The patient and the family are informed and asked to follow-up with desizing pad operator for further outpatient monitoring if they wish to do so. I explained to them that she will need additional CT follow-up due to concerns of possible malignancy. They will decide whether they want to pursue follow-up. Hypothyroid. Medications are adjusted. Further monitoring is necessary. Nonobstructive coronary artery disease. Management per cardiology. Hyperlipidemia. Per PCP. Hypertension. Stable. Continue home management. Obesity.? Counseled. DVT pph.? Received Lovenox EchO: ?CONCLUSIONS ?1. Normal left ventricular size, systolic function and wall ?thickness, with no regional wall motion abnormalities. Left ?ventricular ejection fraction is estimated at 65 %. Normal ?diastolic function. ?2. Mildly increased left atrial size. ?3. Pulmonary artery pressure estimated at 26 mm Hg. ?4. When compared to previous echocardiogram dated 01/16/2017, ?pulmonary pressure seems to have decreased. Physical Exam Narrative: General: Alert oriented x3, patient seen sitting up in bed appearing comfortable. Denies chest pain at this time. HEENT: Normocephalic, atraumatic, EOMI, breathing comfortably. Cardio: Regular rate rhythm, normal S1-S2, no murmurs Respiratory: Good bilateral air entry, no wheezes no rhonchi appreciated GI: Abdomen soft, nontender, nondistended, bowel sounds + Behavior: Appropriate and cooperative Extremities: no edema, no cyanosis Discharge Data Studies Completed and Pending Completed Studies During Hospitalization Category Date Time Status CT abdomen pelvis w con* [id number] Urgent Cat Scan 06/15/21 02:40 Completed CXRP [XR chest 1V portable [id number]] Stat Exams 06/15/21 04:22 Completed Sestamibi Stress Test Request Routine Exams 06/16/21 12:15 Draft XR KUB portable [id number] Urgent Exams 06/16/21 07:25 Completed CV. echo complete* [id number] Routine Ultrasound 06/15/21 06:08 Completed Pending at discharge Category Date Time Status NM tatiana perf SPECT r/s* [id number] Routine Nuc Med 06/17/21 12:15 Taken Radiology Impressions Abdomen/Pelvis CT 06/15/21 02:40 IMPRESSION: 1. Nondilated small and large bowel loops containing fluid and air fluid levels could represent a diffuse ileus. 2. Multiple small benign hepatic cysts are seen, the largest seen in the left hepatic lobe measuring 7.7 mm. No further workup needed. 3. A 7.7 mm pulmonary nodularity is present in the right lung base posteriorly. For patients at low risk (minimal or absent history of smoking and of other known risk factors), recommend CT Chest at 6-12 months, then consider CT Chest at 18-24 months. For patients at high risk (history of smoking or of other known risk factors), recommend CT Chest at 6-12 months, then CT Chest at 18-24 months. (Reference: Shaila) REFERENCES: Shaila Roberts et al. Guidelines for Management of Incidental Pulmonary Nodules Detected on CT Images: From the Fleischner Society 2017. Radiology. 2017;284(1):228-243. Chest X-Ray 06/15/21 04:22 IMPRESSION: Indistinct pulmonary vasculature and some increased interstitial opacities predominately in the mid lower hemithoraces suggests pulmonary edema. KUB X-Ray 06/16/21 07:25 IMPRESSION: Nonobstructive bowel gas pattern. Laboratory Results WBC 5.8 10^3/uL (4.0-10.0) 06/16/21 05:45 RBC 3.80 10^6/uL (4.1-5.3) L 06/16/21 05:45 Hgb 11.7 g/dL (11.5-15.3) 06/16/21 05:45 Hct 35.1 % (37.0-47.0) L 06/16/21 05:45 MCV 92.4 fl (81-99) 06/16/21 05:45 MCH 30.8 pg (28.0-34.0) 06/16/21 05:45 MCHC 33.3 g/dL (30.0-36.0) 06/16/21 05:45 RDW 12.5 % (12.1-15.1) 06/16/21 05:45 Plt Count 204 10^3/cmm (130-400) 06/16/21 05:45 MPV 8.5 fL (7.4-10.4) 06/16/21 05:45 Neut % (Auto) 83.5 % 06/16/21 05:45 Lymph % (Auto) 9.3 % 06/16/21 05:45 [place] % (Auto) 6.2 % 06/16/21 05:45 Eos % (Auto) 0.5 % 06/16/21 05:45 Baso % (Auto) 0.2 % 06/16/21 05:45 Neut # (Auto) 4.82 10^3/uL (1.8-7.7) 06/16/21 05:45 Lymph # (Auto) 0.5 10^3/uL (0.8-4.8) L 06/16/21 05:45 [place]ether # (Auto) 0.4 10^3/uL (0.2-0.9) 06/16/21 05:45 Eos # (Auto) 0.0 10^3/uL (0.0-0.8) 06/16/21 05:45 Baso # (Auto) 0.0 10^3/uL (0.0-0.1) 06/16/21 05:45 Nucleated RBC % (auto) 0 % 06/16/21 05:45 Nucleated RBCs # 0.0 /100WBC 06/16/21 05:45 Sodium 129 mmol/L (136-145) L 06/16/21 05:45 Potassium 3.5 mmol/L (3.5-5.1) 06/16/21 05:45 Chloride 94 mmol/L (98-107) L 06/16/21 05:45 Carbon Dioxide 25 mmol/L (22-29) 06/16/21 05:45 Anion Gap 13.5 (5-19) 06/16/21 05:45 BUN 13 mg/dL (8-23) 06/16/21 05:45 Creatinine 0.7 mg/dL (0.5-0.9) 06/16/21 05:45 GFR Calculation Not Reportable 06/16/21 05:45 Glucose 119 mg/dL (65-115) H 06/16/21 05:45 Calculated Osmolality 269 mOsm/kg (285-295) L 06/16/21 05:45 Calcium 8.5 mg/dL (8.5-10.5) 06/16/21 05:45 Magnesium 2.2 mg/dL (1.7-2.3) 06/16/21 05:45 Total Bilirubin 0.4 mg/dL (0.15-1.2) 06/15/21 02:30 AST 21 U/L (0-32) 06/15/21 02:30 ALT 15 U/L (0-33) 06/15/21 02:30 Alkaline Phosphatase 82 IU/L (35-105) 06/15/21 02:30 Troponin T Baseline 12 ng/L (0-10) H 06/15/21 02:30 Troponin T 120 Minute Cancelled 06/15/21 10:30 Delta Troponin T Cancelled 06/15/21 10:30 NT-Pro-B Natriuret Pep 288 pg/mL (0-450) 06/15/21 02:30 Total Protein 6.9 g/dL (6.6-8.7) 06/15/21 02:30 Albumin 5.0 g/dL (3.5-5.2) 06/15/21 02:30 Globulin 1.9 g/dL (1.3-4.6) 06/15/21 02:30 Lipase 22 U/L (13-60) 06/15/21 02:30 TSH 7.65 uIU/mL (0.27-4.20) H 06/15/21 02:30 Urine Color Yellow (Yellow) 06/15/21 04:00 Urine Appearance Clear (CLEAR) 06/15/21 04:00 Urine pH 7 (5-7) 06/15/21 04:00 Ur Specific [place] 1.010 (1.005-1.030) 06/15/21 04:00 Urine Protein Neg (Negative) 06/15/21 04:00 Urine Glucose (UA) Trace (Normal) H 06/15/21 04:00 Urine Ketones Negative (Negative) 06/15/21 04:00 Urine Blood Neg (Negative) 06/15/21 04:00 Urine Nitrate Negative (Negative) 06/15/21 04:00 Urine Bilirubin Neg (Negative) 06/15/21 04:00 Urine Urobilinogen Norm mg/dL (Negative) 06/15/21 04:00 Ur Leukocyte Esterase Negative (Negative) 06/15/21 04:00 Vitals Last Vital Signs Temp 97.8 F 06/17/21 14:00 Pulse 59 L 06/17/21 14:00 Resp 16 06/17/21 14:00 BP 127/69 06/17/21 14:00 Pulse Ox 94 06/17/21 14:00 Discharge Plan Discharge Patient Disposition: Home Condition: Stable Prescriptions: New levothyroxine 88 mcg Tablet 88 mcg PO DAILY 30 Days Qty: 30 0RF Continued atenolol 50 mg tablet 50 mg PO DAILY 0RF aspirin [Adult Aspirin Regimen] 81 mg tablet,delayed release (DR/EC) 81 mg PO DAILY 0RF hydrocortisone-iodoquinol 1-1 % cream 1 applic topical TID Qty: 28.4 1RF Rx Instructions: Apply to affected areas on lips 3 times daily when flared spironolactone 25 mg tablet 25 mg PO DAILY 0RF simvastatin 40 mg tablet 40 mg PO DAILY 0RF Discontinued levothyroxine 75 mcg tablet 75 mcg PO DAILY 0RF Discharge Orders: Discharge Order (Routine); Ordered 06/17/21 Ordered By: Ajit Toure Referrals: Cory Preston MD [Primary Care Provider] - 07/02/21 9:30 am Sarahi Beck MD [Physician] - 06/27/21 3:00 pm (Pulmonary nodule) Discharge Diet: Advance as tolerated Discharge Activity: Resume usual activity Patient Instructions: Levothyroxine (By mouth) (Levothroid, Levoxyl, Synthroid, Tirosint), Levothyroxine (By mouth), Gastroenteritis (DC), Acute Nausea and Vomiting (ED), Acute Diarrhea (ED), Opioid Safety Activity Restrictions/Additional Instructions: Please come back to emergency room if you develop any new diarrhea, vomiting, weakness, chest pain, shortness of breath, palpitations, dizziness or lightheadedness or any other new complaints. Please follow-up with your primary care physician. Please ask your primary care physician to recheck your sodium level and electrolytes and do necessary adjustments to your medications. Please ask your PCP to recheck your thyroid tests and adjust the medication as needed.\ Follow-up with desizing pad operator regarding newly diagnosed lung nodule which will need to be monitored. Additional testing is needed. Discharge Attestations Time Spent in Discharge Care*: greater than 30 min Quality Metrics Clinical Quality Measures [ No reported AMI, CVA or VTE this stay] Coding Level of Care Code Acute Chg FW DC note Diagnoses Hyponatremia E87.1 Vomiting R11.10 Diarrhea R19.7 Weakness R53.1 Chest pain R07.9 CAD (coronary artery disease) I25.10 Gastroenteritis K52.9
--- NOTE | 2021-06-25 12:43 | PC.SOCIAL ---
Talked with Dr Camacho related to stress test results. Per Dr Camacho test is positive and will need seen by Cardiology. Unable to reach by phone. Talked to Maryan Perez in person and was able to get an appt with Dr Kraft to follow up on stress test and reestablish for Cardiology care on 07/01/2021 check in time of 2:15pm. Pt indicates when asked that she has not experienced any chest pain since return home but does indicate she is weaker than normal. This nurse discussed in detail that if she should experience chest pain prior to appt to return to ED for evaluation and to prevent any exertional work including gardening (since previously verbalized chest pain at times during this activity) until followup with Dr Kraft on date indicated. Pt verbalized understanding and agrees. She also verbalized awareness of appointment with Dr Beck on 06/27/2021 and she verbalized appointment with Dr Preston on 07/02/2021. Updated Dr Camacho.
== END 2021-06-17 14:45 | disposition home or self-care (01) | DRG 392 ==
LOC: ER 05:45 → MEDSURG 08:21
PROVIDERS: Internal Medicine; Admitting Provider Internal Medicine; Emergency Provider Emergency Medicine; PCP Family Medicine; Visit Provider Internal Medicine
DX: K52.9 Noninfective gastroenteritis and colitis, unspecified (principal); E87.1 Hypo-osmolality and hyponatremia; K56.7 Ileus, unspecified; I10 Essential (primary) hypertension; E78.5 Hyperlipidemia, unspecified; E03.9 Hypothyroidism, unspecified; E86.0 Dehydration; R91.8 Other nonspecific abnormal finding of lung field; E66.9 Obesity, unspecified; Z68.27 Body mass index [BMI] 27.0-27.9, adult; I25.10 Atherosclerotic heart disease of native coronary artery without angina pectoris; R07.9 Chest pain, unspecified; Z79.82 Long term (current) use of aspirin
CPT/HCPCS: 36415; 71045; 74018; 74177; 78452; 80048; 80053; 81003; 83690; 83735; 83880; 84443; 84484; 85025; 93005; 93017; 93306; 96361; 96372; 96374; 96375; 96376; 99285; A9500; J1650; J1940; J2270; J2405; J2785; J7030; Q9967

== ENCOUNTER → 2021-06-27 14:52 | Outpatient (BNVA) | payer MEDICARE, OTHER, SELFPAY | PROVIDERS: PCP Family Medicine; Visit Provider Internal Medicine Critical Care Medicine | DX: R91.1 Solitary pulmonary nodule (principal); I25.10 Atherosclerotic heart disease of native coronary artery without angina pectoris; I10 Essential (primary) hypertension; E78.5 Hyperlipidemia, unspecified | CPT/HCPCS: 99204 ==

== ENCOUNTER → 2021-07-01 13:58 | Outpatient (BNVA) | payer MEDICARE, OTHER, SELFPAY | PROVIDERS: PCP Family Medicine; Visit Provider Internal Medicine Cardiovascular Disease | DX: I25.118 Atherosclerotic heart disease of native coronary artery with other forms of angina pectoris (principal); E03.9 Hypothyroidism, unspecified; E78.5 Hyperlipidemia, unspecified; I10 Essential (primary) hypertension; R93.1 Abnormal findings on diagnostic imaging of heart and coronary circulation; R06.02 Shortness of breath | CPT/HCPCS: 99205 ==

== ENCOUNTER 2021-07-15 05:49 | Outpatient (CLI) | payer MEDICARE, OTHER, SELFPAY ==
[2021-07-11 10:00] LABS: Basophils % 0.5 %; Eosinophils # 0.1 10^3/uL (0.0-0.8); Eosinophils % 0.9 %; Hematocrit 35.5 % (37.0-47.0); Lymphocytes # 1.1 10^3/uL (0.8-4.8); Lymphocytes % 19.9 %; Mean Corpuscular HGB Conc 33.8 g/dL (30.0-36.0); Mean Corpuscular Hemoglobin 30.7 pg (28.0-34.0); Mean Corpuscular Volume 90.8 fl (81-99); Mean Platelet Volume 8.5 fL (7.4-10.4); Monocytes # 0.4 10^3/uL (0.2-0.9); Neutrophils # 3.89 10^3/uL (1.8-7.7); Neutrophils % 70.5 %; Nucleated Red Blood Cells % 0 %; Platelet Count 259 10^3/cmm (130-400); Red Blood Count 3.91 10^6/uL (4.1-5.3); Red Cell Distribution Width 12.5 % (12.1-15.1); White Blood Count 5.5 10^3/uL (4.0-10.0)
[2021-07-11 10:15] LABS: INR 0.97 (0.83-1.21); Prothrombin Time (Patient) 13.2 Seconds (12.0-15.1)
[2021-07-11 10:25] LABS: Anion Gap 14.2 (5-19); Blood Urea Nitrogen 13 mg/dL (8-23); Calcium 9.4 mg/dL (8.5-10.5); Carbon Dioxide 25 mmol/L (22-29); Chloride 95 mmol/L (98-107); Glucose 98 mg/dL (65-115); Osmolality Calculated 270 mOsm/kg (285-295); Potassium 4.2 mmol/L (3.5-5.1); Sodium 130 mmol/L (136-145)
[2021-07-15] VITALS (21 sets, daily range): BP systolic 117–182; BP diastolic 50–83; PULSE 50–74; RESP 0–20; TEMP 36.9; O2SAT 95–99; BMI 27.1
--- NOTE | 2021-07-15 06:00 | XACV_ITS ---
Exam Room: 2 Ht: 168 cm Wt: 76 kg BSA: 1.90 m2 Gender: Female : 1935 Any Known Allergies: Sulfa Exam Priority: Routine Procedure(s): Procedure Description: Diagnostic procedure Procedure Description: Left Heart Catheterization Procedure Description: Left ventriculography Procedure Description: Coronary Angiography Procedure Description: Pressure Wire Swapnil MIMS; Diagnostic Cath Status: Elective Diagnostic Findings * The left main is a medium caliber vessel which was found to have a moderately heavy clump of calcification near the ostium. There is an eccentric 30 to 40% narrowing in this region. * Left-sided descending artery is a medium caliber vessel which appears to wrap around the LV apex minimally. Minimal intimal irregularities were noted in the mid segment of the artery. The first diagonal branch has a high takeoff and was found to have no significant stenotic lesions. The second diagonal branch is a small caliber vessel with an ostial 60 to 70% narrowing. * The left circumflex artery is a medium caliber nondominant vessel with no significant stenotic lesions. * The right coronary artery is a medium caliber dominant vessel with no significant lesions. The mid segment of the all the arteries were found to be tortuous. PCI Status: Elective Interventional Findings * PROCEDURE DETAIL: We engaged on left main artery with XB 3.0 guide catheter. After zeroing and normalization IFR wire was crossed into the LAD and iFR was performed. It showed a non ischemic value of 1.00. 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 Conclusions 1. 85-year-old white female with history of coronary artery disease, presenting with increasing episodes of chest pain, shortness of breath, fatigue and an abnormal myocardial perfusion imaging. The perfusion scan revealed ischemia mostly in the distribution of the left circumflex artery. Patient had around 40% left main disease by angiogram performed many years ago. A repeat cardiac catheterization were recommended to further evaluate the coronary status and decide on further management. Patient underwent left heart catheterization with a left and right coronary angiogram and LV angiogram today. The findings are as follows. 2. ContinueAt 30 to 40% eccentric left main narrowing was noted near the ostium. Moderate to heavy clump of calcium was noted in this region. There is a 60% ostial narrowing in a small caliber second diagonal branch. No other significant stenotic lesions. LVEDP was somewhat acutely which went up to 24 in the LV angiogram. LV ejection fraction was within normal limits. 3. To better evaluate the functional significance of the left main ostial lesion, an IFR was thought to be appropriate. I discussed and reviewed the cardiac catheterization data with Dr. Sampson. Dr. Sampson agreed with this plan and took over further management of this patient at this point. 4. iFR of the left main artery is non-ischemic and was 1.00. Recommendations * Aggressive risk factor modification. * Outpatient cardiology follow up in 4 weeks. Interventional RX Recommendation: medical therapy and/or counseling Diagnostic RX Recommendation: other cardiac therapy w/o CABG/PCI Anticoagulation: Heparin Ventriculography Ejection Fraction: 55.0 % LV EDP: 16 mmHg Left Ventriculography Findings: * The LV gram was performed in the PHILLIP position. The LV cavity appears to be of normal size. LV ejection fraction was around 60%. No significant mitral valve prolapse. Mild mild regurgitation was noted. LVEDP was 16 mmHg. Following the LV angiogram the EDP went up to 20 mmHg. Pressures Phase:Rest AO : 167 / 76 ( 101 ) @ 8:22:00 AM 150 / 63 ( 100 ) @ 8:33:00 AM 149 / 63 ( 100 ) @ 8:33:00 AM 127 / 52 ( 83 ) @ 8:50:00 AM LV : 145 / -4 / 16 @ 8:32:00 AM 143 / -1 / 19 @ 8:33:00 AM 142 / 0 / 20 @ 8:33:00 AM Valves Phase:DefaultPhase AV : 0.0 @ 8:05:10 AM AV Mean Gradient: 0.0 @ 8:05:10 AM Clinical Evaluation EBL: 5mL-10mL Procedural Details Procedure Consent Obtained. Pre-Procedure Time Out. Identified patient by full name and date of as verbalized by the patient/guarantor. Does the consent match the physician's order: Yes. Accurate & Complete Informed Consent: Yes. Inpatient/Outpatient History & Physical on Chart: Yes. If H&P is completed, is and addenduem needed: No. Visualize and Verify Site with Patient/Guarantor: N/A. Relevant Radiology Images available: Yes. The risks, benefits, and alternatives of sedation and/or procedure were discussed by physician. The patient agrees to continue. Procedure started. [facility] Clinical Fraility Score: 3: Managing Well. 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 Chest Pain Symptom Assessment: Typical Angina Symptoms. Cardiovascular Instability: No. Correct patient, site and procedure confirmed by cath team. PERRLA. 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 Lungs clear x 5 lobes. A 20 gauge IV was started in the right anticubital using aseptic technique. Pre Procedural Pulses: bilateral radial was 2+. Pre Procedural Pulses: right dorsalis pedis was 3+. Pre Procedural Pulses: left dorsalis pedis was 2+. Pre Procedural Pulses: right posterior tibial was 2+. Pre Procedural Pulses: left posterior tibial was 3+. Oxygen started at 2liters/min via nasal canula. right groin was prepped with chloroprep then draped in the usual sterile fashion. right radial was prepped with chloroprep then draped in the usual sterile fashion. Physician notified. Baseline sample Acquired. HR: 68 BPM. Patient's family in CPRU room #3. Dr. Kraft will update at the completion of the procedure. Physician arrived. Physician scrubbed in. Immediate Pre-Procedure Time Out. Correct Patient: Yes; Correct Procedure: Yes; Correct Site: Yes; Correct Patient Position: Yes; Correct Supplies: Yes; Dried Flammable Prep: Yes; Blood Products Available: N/A;. Lidocaine 1% infiltrated to the right radial. Arterial access obtained. A 5 kittitian TIG catheter in over wire. Multiple views taken of left coronary artery. Catheter redirected to the RCA. Catheter removed over the standard wire. A 5 kittitian JR4 catheter in over wire. Multiple views taken of right coronary artery. A 5 kittitian Angled Pig catheter in over wire. EDP Sample taken: LV 145/-5,16; HR: 65 BPM; SpO2: 98%. LV gram performed in PHILLIP @ 10 mL/second for a total of 30 mL. EDP Sample taken: LV 143/-2,19; HR: 66 BPM; SpO2: 98%. Pullback taken: LV 142/-1,20; AO 150/63(100); Mean: 0mmHg, Peak to Peak: 0mmHg, SEP: 7sec/min; HR: 66 BPM; SpO2: 98%. Catheter removed over the standard wire. Dr. Kraft scrubbed out. Dr. Sampson notified to come view cinography. Side port of sheath attached to Heparin flush at KVO to maintain patency. Dr. Sampson here. Dr. Sampson scrubbed in to perform intervention. 6 kittitian XB 3 guide catheter was inserted over the wire. OmniWire Pressure guidewire was advanced through the guide catheter to lesion in the left main. iFR measurements obtained of the left main. 1.01. Wire out. Guide catheter out. Dr. Sampson scrubbed out. A TR Band was successful obtaining hemostatsis at the Right Radial artery insertion site. TR band placed. Hemostasis obtained. Post Procedure: Pulses reassessed and unchanged. PERRLA. 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 No VTE prophylaxis required. Medication's Wasted: Lidocaine 1% = 7 mL. Medication's Wasted: Nitro = 49.8 mg. Total IV fluids: 70 mL. Post-op diagnosis: Non-obstructive CAD, iFR of Left main 1.01. Complications: none. Estimated blood loss: 5mL-10mL. Responsiveness - Normal response to verbal stimuli; alert and oriented, PERRLA. Airway - Unaffected, no intervention required; spontaneous ventilation. Circulation: W/N/L, pulses unchanged. Nausea/Vomiting: No. Procedure completed. Patient transferred by wheelchair to CPRU. Vital chart was stopped. Access Site Site: Right Radial artery Sheath Size: 6 Fr Hemostasis Method: TR Band Hemostasis Success: Successful Procedure Medications Start: 7:06 AM Stop: 7:06 AM Medication: Fentanyl Amount: 50 mcg Route: I.V. Start: 7:09 AM Stop: 7:09 AM Medication: Versed Amount: 1 mg Route: I.V. Start: 7:20 AM Stop: 7:20 AM Medication: Verapamil Amount: 5 mg Route: I.A. Start: 7:20 AM Stop: 7:20 AM Medication: Nitrogylcerin Amount: 200 mcg Route: I.A. Start: 7:22 AM Stop: 7:22 AM Medication: Heparin Amount: 5000 units Route: I.V. Start: 7:48 AM Stop: 7:48 AM Medication: Heparin Amount: 1000 units Route: I.V. Start: 7:48 AM Stop: 7:48 AM Medication: Versed Amount: 1 mg Route: I.V. I, the attending physician, have reviewed and verified all procedure medications. Yes, all medications given per verbal order History/Risk Factors Hypertension: Yes Dyslipidemia: Yes Peripheral Arterial Disease (PAD): No Myocardial Infarction (CO): No Obesity: No Renal Disease: No Tobacco Use: Never Prior Interventions PCI: No CABG: No Valve Surgery: No Report Signatures Interventional Workflow Finalized by Smooth Sampson MD on 07/28/2021 10:45 PM Diagnostic Workflow Finalized by Dr Nick Kraft MD [facility] on 07/15/2021 05:44 PM
--- NOTE | 2021-07-15 07:03 | W.PM.OPSUD ---
Surgery/Procedure H&P Update DATE OF PROCEDURE: July 15, 2021 DATE H&P PERFORMED: 07/01/21 H&P UPDATE INFORMATION: I have reviewed H&P completed within last 30 days, I have examined patient prior to procedure and No changes to prior documentation PREOP DIAGNOSIS: ASHD PLANNED PROCEDURE: Operation Date: 07/15/21 07:00 Proposed Procedures p Cardiac Catheterization(Left) - Nick Kraft MD PATIENT REASSESSED PRIOR TO SEDATION, WITH NO CHANGE NOTED: Yes PHYSICAL EXAM: alert, oriented x 3, clear to auscultation bilaterally and regular rate & rhythm AIRWAY EVAL/ANESTHESIA PLAN: normal airway, see other exam findings, ASA III, Monitored Anesthesia, Local Anesthesia, Risks, benefits & alternatives of sedation and/or procedure discussed and Patient agrees to continue as planned
--- NOTE | 2021-07-15 10:20 | PC.NURSE ---
The patient shifted herself in bed causing the insertion site to bleed. 5 ml of air was added to the TR band. Bleeding stopped and no hematoma noted. Distal radial pulse present.
== END 2021-07-15 05:50 | disposition home or self-care (01) ==
PROVIDERS: Internal Medicine; PCP Family Medicine; Visit Provider Internal Medicine Cardiovascular Disease
DX: I25.10 Atherosclerotic heart disease of native coronary artery without angina pectoris (principal); R93.1 Abnormal findings on diagnostic imaging of heart and coronary circulation; I10 Essential (primary) hypertension; E78.5 Hyperlipidemia, unspecified; Z79.82 Long term (current) use of aspirin; E03.9 Hypothyroidism, unspecified; Z82.49 Family history of ischemic heart disease and other diseases of the circulatory system
CPT/HCPCS: 36415; 80048; 85025; 85610; 86850; 86900; 93452; 93458; 93571; 96360; 96361; 99152; 99153; C1769; C1887; C1894; J1644; J2250; J3010; J3490; J7030; Q0163; Q9967

== ENCOUNTER → 2021-10-17 09:29 | Outpatient (BNVA) | payer MEDICARE, OTHER, SELFPAY | PROVIDERS: PCP Family Medicine; Visit Provider Internal Medicine Cardiovascular Disease | DX: I25.118 Atherosclerotic heart disease of native coronary artery with other forms of angina pectoris (principal); I10 Essential (primary) hypertension; E78.5 Hyperlipidemia, unspecified; E03.9 Hypothyroidism, unspecified | CPT/HCPCS: 99214 ==

== ENCOUNTER 2021-10-29 13:47 | Outpatient (CLI) | payer MEDICARE, OTHER, SELFPAY ==
--- NOTE | 2021-10-29 15:00 | CT_ITS ---
WS: [id number] CT CHEST WITHOUT INTRAVENOUS CONTRAST HISTORY: Lung nodule TECHNIQUE: Contiguous 5 mm axial imaging performed on the thorax. Coronal and sagittal reformats are submitted. All CT scans at [facility] use at least one of these dose optimization techniques: automated exposure control; mA and/or kV adjustment per patient size (includes targeted exams where dose is matched to clinical indication); or iterative reconstruction. CONTRAST: None DLP: 695.62 mGy.cm COMPARISON: 06/15/2021 Lungs and central airway: Well-circumscribed noncalcified 7.3 mm nodule at the RIGHT lung base is sim ilar to 06/15/2021. No additional mass or pulmonary nodule or pneumonia. Pleura: Normal. No pleural effusion. Heart and pericardium: Mildly enlarged cardiac chambers. No effusion. Mediastinum and nellie: No adenopathy identified on this unenhanced study. There are small benign-appea ring lymph nodes. Vessels: Mild atherosclerosis aorta. Mildly prominent pulmonary artery. Chest wall and lower neck: No soft tissue masses. Upper abdomen: Small hiatal hernia. Again noted are scattered low-attenuation nodules within the live r. These cannot be further evaluated without IV contrast but appear similar in size to the prior stud y and are likely cysts. No adrenal mass. Osseous structures: Mild anterior wedging and Schmorl's node at T12. CT/CT chest wo con [id number] IMPRESSION: 1. No interval change 7.3 mm noncalcified RIGHT lower lobe pulmonary nodule si nce 06/15/2021. Recommend follow-up CT chest and 6-12 months. 2. Mild cardiomegaly. 3. Mild atherosclerosis aorta.
== END 2021-10-29 13:48 | disposition home or self-care (01) ==
LOC: RAD 13:47
PROVIDERS: PCP Family Medicine; Visit Provider Internal Medicine Critical Care Medicine
DX: R91.1 Solitary pulmonary nodule (principal); I51.7 Cardiomegaly; I70.0 Atherosclerosis of aorta
CPT/HCPCS: 71250

== ENCOUNTER 2021-11-28 06:57 | Emergency (ER) | payer MEDICARE, OTHER, SELFPAY ==
[2021-11-28 07:11] VITALS: BP 162/79; PULSE 69; RESP 18; TEMP 36.6; O2SAT 98; BMI 27.1
--- NOTE | 2021-11-28 07:19 | PC.NURSE ---
pt reports she came to ED due to burning with urination and urinary frequency. denies fevers or abdominal pain. reports loose bowels as well. speech clear, speaking in complete sentences without difficulty. skin pink/warm/dry. lung sounds clear bilat. bowel sounds present x4. abdomen soft and nontender to palpation.
[2021-11-28 07:30] VITALS: BP 152/68; PULSE 67; O2SAT 97
[2021-11-28 07:42] LABS: Add Urine Microscopic? NO; Charge for UA Resulting for Rev
[2021-11-28 07:44] LABS: Bilirubin Urine Negative (Negative); Blood Urine Negative (Negative); Glucose Urine UA Negative (Normal); Ketones Urine Negative (Negative); Leukocyte Esterase Urine Negative (Negative); Nitrate Urine Negative; Protein Urine Negative (Negative); Urine Appearance Clear (CLEAR); Urine Color Yellow (Yellow); Urobilinogen Urine 0.2 mg/dL (Negative)
--- NOTE | 2021-11-28 07:56 | ED_ITS ---
HPI - Female Genitourinary General: Chief complaint: Urogenital-Female Stated complaint: urinary pain, +COVID yesterday Time Seen by Provider: 11/28/21 07:03 Source: patient Mode of arrival: ambulatory History of Present Illness: 86 yo female presents to the ER with complaints of dysuria, nausea and cough. Was diagnosed with COVID yesterday at a walkin clinic and started on paxlovid. Nause withs so,e vomitting and diarrhea. Non- productive cough. MD elicited complaint: dysuria Onset (ago): minute(s) Severity: mild Quality of pain: cramping Consistency: constant Urinary symptoms: Dysuria Exacerbating factors: none Relieving factors: none Associated symptoms: Deny abdominal pain or nausea Review of Systems Const: Denies: fever(s), chills, body aches, change in appetite, fatigue or malaise ENMT: Denies: throat pain, ear or mastoid pain, nasal discharge or nasal co ngestion Card: Denies: chest pain, palpitations, edema, dyspnea on exertion or orthopnea Resp: Denies: dyspnea, productive cough or non-productive cough GI: Denies: abdominal pain, nausea, vomiting, hematemesis, coffee ground emesis, diarrhea, constipation, bloating, hematochezia or melena : Denies: flank pain, difficulty voiding, dysuria, urinary frequency or urinary urgency Skin/Breast: Denies: rash or pruritus PFSH ED PFSH: Medical History CAD (coronary artery disease) HTN (hypertension) Hyperlipidemia Hypothyroid Surgical History H/O: hysterectomy Family History Mother CAD (coronary artery disease), Onset Age: 50 [place] Sister CAD (coronary artery disease), Onset Age: 60 Cancer Lung disease Diabetes Sister CAD (coronary artery disease), Onset Age: 60 Father Dementia Grandmother Stroke Other Hypertension Denies family history of Clotting disorder Chronic kidney disease (CKD) Suicide Anesthesia complication Bleeding disorder Social History Smoking and tobacco status: never smoked Alcohol intake: never Physical Exam Const: COMMON NORMALS: no acute distress GENERAL APPEARANCE: cooperative and comfortable ORIENTATION/CONSCIOUSNESS: Yes awake, Yes oriented to person, Yes oriented to place and Yes oriented to time HENMT: COMMON NORMALS: normocephalic, atraumatic and hearing grossly normal bilaterally HEAD & SCALP: normocephalic and atraumatic Resp: COMMON NORMALS: normal respiratory effort, No retractions, No use of accessory muscles and clear to auscultation bilaterally AUSCULTATION: clear to auscultation bilaterally Cardio: COMMON NORMALS: regular rate, regular rhythm and No murmurs present (Cardio) RATE: regular rate RHYTHM: regular rhythm GI: COMMON NORMALS: Soft to palpation and No hepatosplenomegaly present AUSCULTATION: Yes normoactive bowel sounds PALPATION: Yes Soft to palpation, No Tenderness to palpation present (GI), No Guarding due to palpation present (GI) and Yes No hepatosplenomegaly present : COMMON NORMALS: Yes no CVA tenderness BLADDER/KIDNEY EXAM: Yes no CVA tenderness Back/Pelvis: COMMON NORMALS: no CVA tenderness Extremity: COMMON NORMALS: normal to inspection, capillary refill normal, no clubbing, cyanosis or edema, no calf tenderness and no pedal edema Neuro: SENSORIUM/ORIENTATION: Yes oriented to person, Yes oriented to place and Yes oriented to time Skin: COMMON NORMALS: no rashes or lesions noted GENERAL SKIN EXAM: no rashes or lesions noted Course Vital Signs: Vital signs: Vital Signs Temperature 97.9 F 11/28/21 07:11 Pulse Rate 69 11/28/21 07:11 Respiratory Rate 18 11/28/21 07:11 Blood Pressure 162/79 11/28/21 07:11 Pulse Oximetry 98 11/28/21 07:11 Oxygen Delivery Me thod 11/28/21 07:11 MDM - Female Medical Decision Making UA isnegative. RX for ondansetron. supportive cares. Continue paxlovid. vitals stable - sats normal. Medical Records I reviewed the patient's medical records. Lab Data I reviewed the patient's lab results. Laboratory Results Urine Color Yellow (Yellow) 11/28/21 07:25 Urine Appearance Clear (CLEAR) 11/28/21 07:25 Urine pH 7.0 (5-7) 11/28/21 07:25 Ur Specific Russell 1.020 (1.005-1.030) 11/28/21 07:25 Urine Protein Negative (Negative) 11/28/21 07:25 Urine Glucose (UA) Negative (Normal) 11/28/21 07:25 Urine Ketones Negative (Negative) 11/28/21 07:25 Urine Blood Negative (Negative) 11/28/21 07:25 Urine Nitrate Negative 11/28/21 07:25 Urine Bilirubin Negative (Negative) 11/28/21 07:25 Urine Urobilinogen 0.2 mg/dL (Negative) 11/28/21 07:25 Ur Leukocyte Esterase Negative (Negative) 11/28/21 07:25 Discharge Plan Discharge Patient Disposition: Home Clinical Impression: COVID-19 Condition: Stable Prescriptions: New ondansetron HCl 4 mg tablet 4 mg PO Q6H PRN (Reason: nausea and vomiting) Qty: 20 0RF No Action atenolol 50 mg tablet 50 mg PO DAILY aspirin [Adult Aspirin Regimen] 81 mg tablet,delayed release (DR/EC) 81 mg PO DAILY alprazolam 0.25 mg tablet 0.25 mg PO BID PRN (Reason: anxiety) levothyroxine 88 mcg tablet 88 mcg PO DAILY lisinopril 10 mg tablet 10 mg PO DAILY Qty: 30 5RF nitroglycerin 0.4 mg tablet, sublingual 0.4 mg sublingual Q5M PRN (Reason: chest pain) 30 Days Qty: 30 3RF Rx Instructions: until response; do not exceed 3 doses per episode spironolactone 25 mg tablet 25 mg PO DAILY simvastatin 40 mg tablet 40 mg PO DAILY Discharge Orders: Discharge ED (Routine); Ordered 11/28/21 Ordered By: Song Sorto Referrals: Cory Preston MD [Primary Care Provider] - Discharge Diet: Usual diet Discharge Activity: Resume usual activity Activity Restrictions/Additional Instructions: Supportive care she can use the ondansetron as needed for nausea. Urinalysis done today was negative no signs of infection. Coding Level of Care Code ED Independent Contractor for Patricia Theodore
[2021-11-28 08:07] VITALS: BP 140/61; PULSE 63; RESP 18; O2SAT 95
== END 2021-11-28 08:09 | disposition home or self-care (01) ==
PROVIDERS: Emergency Provider Family Medicine; PCP Family Medicine
DX: U07.1 COVID-19 (principal); Z79.82 Long term (current) use of aspirin; I25.10 Atherosclerotic heart disease of native coronary artery without angina pectoris; I10 Essential (primary) hypertension; E78.5 Hyperlipidemia, unspecified
CPT/HCPCS: 81003; 99282

== ENCOUNTER → 2022-04-21 11:08 | Outpatient (BNVA) | payer MEDICARE, OTHER, SELFPAY | PROVIDERS: PCP Family Medicine; Visit Provider Internal Medicine Cardiovascular Disease | DX: I25.118 Atherosclerotic heart disease of native coronary artery with other forms of angina pectoris (principal); E78.5 Hyperlipidemia, unspecified; E03.9 Hypothyroidism, unspecified; I10 Essential (primary) hypertension | CPT/HCPCS: 99214 ==

== ENCOUNTER → 2022-11-10 09:57 | Outpatient (BNVA) | payer MEDICARE, OTHER, SELFPAY | PROVIDERS: PCP Family Medicine; Visit Provider Internal Medicine Cardiovascular Disease | DX: I25.118 Atherosclerotic heart disease of native coronary artery with other forms of angina pectoris (principal); E03.9 Hypothyroidism, unspecified; E78.5 Hyperlipidemia, unspecified; I10 Essential (primary) hypertension | CPT/HCPCS: 99214 ==

== ENCOUNTER 2023-07-20 08:34 | Emergency (ER) | payer MEDICARE, OTHER, SELFPAY ==
[2023-07-20 08:46] VITALS: BP 180/79; PULSE 70; TEMP 36.7; O2SAT 96; BMI 25.8
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
[2023-07-20 09:07] LABS: Basophils % 0.5 %; Eosinophils % 0.7 %; Hematocrit 36.1 % (36-47); Lymphocytes # 1.1 10^3/uL (0.8-4.8); Lymphocytes % 18.9 %; Mean Corpuscular HGB Conc 33.2 g/dL (30-55); Mean Corpuscular Hemoglobin 29.9 pg (27-33); Mean Corpuscular Volume 89.8 fl (85-98); Mean Platelet Volume 8.4 fL (7.4-10.4); Monocytes # 0.5 10^3/uL (0.2-0.9); Monocytes % 7.9 %; Neutrophils # 4.18 10^3/uL (1.8-7.7); Neutrophils % 71.7 %; Nucleated Red Blood Cells % 0 %; Platelet Count 236 10^3/cmm (157-399); Red Blood Count 4.02 10^6/uL (3.85-5.65); White Blood Count 5.83 10^3/uL (3.29-11.43)
[2023-07-20 09:21] LABS: Alanine Aminotransferase 16 U/L (0-33); Albumin Level 4.3 g/dL (3.5-5.2); Alkaline Phosphatase 73 U/L (35-105); Aspartate Amino Transferase 19 U/L (0-32); Blood Urea Nitrogen 11 mg/dL (8-23); Calcium 9.3 mg/dL (8.5-10.5); Carbon Dioxide 25 mmol/L (22-29); Chloride 99 mmol/L (98-107); Creatinine Clr Calc Pharmacy 53.3087; Globulin 2.6 g/dL (1.3-4.6); Glucose 93 mg/dL (65-115); Osmolality Calculated 275 mOsm/kg (285-295); Sodium 133 mmol/L (136-145); Total Bilirubin 0.5 mg/dL (0.15-1.2); Total Protein 6.9 g/dL (6.6-8.7)
[2023-07-20] MEDS: iohexol 350 mg/mL 500 mL Btl (per mL) IV (09:49)
[2023-07-20 10:04] LABS: Add Urine Microscopic? NO; Charge for UA Resulting for Rev
[2023-07-20 10:05] VITALS: BP 149/76; PULSE 62; O2SAT 97
[2023-07-20 10:24] LABS: Bilirubin Urine Neg (Negative); Blood Urine Neg (Negative); Glucose Urine UA Norm (Normal); Ketones Urine Negative (Negative); Nitrate Urine Negative (Negative); Protein Urine Neg (Negative); Specific Gravity, Urine 1.005 (1.005-1.030); Urine Appearance Clear (CLEAR); Urine Color Yellow (Yellow); pH Urine 8 (5-7)
[2023-07-20 10:25] LABS: Leukocyte Esterase Urine Negative (Negative); Sulfosalicylic Acid Urine Negative (Negative); Urobilinogen Urine Neg (Negative)
[2023-07-20 13:01] VITALS: BP 149/76; PULSE 62; TEMP 36.7; O2SAT 97
== END 2023-07-20 13:05 | disposition home or self-care (01) ==
PROVIDERS: Emergency Provider Family Medicine; PCP Family Medicine
DX: R07.89 Other chest pain (principal); I10 Essential (primary) hypertension; E03.9 Hypothyroidism, unspecified; Z79.890 Hormone replacement therapy; V43.02XA Car driver injured in collision with other type car in nontraffic accident, initial encounter; Z79.899 Other long term (current) drug therapy; Y92.414 Local residential or business street as the place of occurrence of the external cause
CPT/HCPCS: 36415; 71045; 71260; 74177; 80053; 81003; 85025; 99285; Q9967

== ENCOUNTER → 2023-10-05 09:30 | Outpatient (BNVA) | payer MEDICARE, OTHER, SELFPAY | PROVIDERS: PCP Family Medicine; Visit Provider Nurse Practitioner Family | DX: I25.10 Atherosclerotic heart disease of native coronary artery without angina pectoris (principal); I10 Essential (primary) hypertension | CPT/HCPCS: 99214 ==

== ENCOUNTER → 2024-09-13 10:35 | Outpatient (BNVA) | payer MEDICARE, OTHER, SELFPAY | PROVIDERS: PCP Family Medicine; Visit Provider Internal Medicine Cardiovascular Disease | DX: I25.118 Atherosclerotic heart disease of native coronary artery with other forms of angina pectoris (principal); I10 Essential (primary) hypertension; E03.9 Hypothyroidism, unspecified; E78.2 Mixed hyperlipidemia; Z79.82 Long term (current) use of aspirin; R07.9 Chest pain, unspecified | CPT/HCPCS: 93005; 99214 ==

== ENCOUNTER 2024-09-20 07:08 | Outpatient (CLI) | payer MEDICARE, OTHER, SELFPAY ==
--- NOTE | 2024-09-20 | ECG_ITS ---
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 The perfusion scan will be documented separately. DATA: Baseline heart rate was 73 beats per minute. Baseline blood pressure was 160/72 millimeters of mercury. Target heart rate was 133. Maximum heart rate achieved was 94. which was 70 % of the predicted target heart rate. Maximum blood pressure was 158/59 millimeters of mercury. The reason for ending the test was completion of the protocol. The patient did not experience any symptoms. ELECTROCARDIOGRAM: BASELINE: Sinus rhythm. Right axis. Left bundle branch block EXERCISE: After Lexiscan injection, no ST-T changes suggestive of ischemic noted. No arrhythmia noted. CONCLUSION: Please note due to baseline abnormality of the EKG specificity and sensitivity of the EKG portion of LexiScan MIBI stress test will be low 1. EKG not suggestive of ischemia due to left bundle branch block it is of low yield 2. Lexiscan injection unremarkable. Electronically Signed On 10-05-2024 19:47:23 CDT by TOD WILKERSON [email or web address]
--- NOTE | 2024-09-20 07:32 | NMCV_ITS ---
NM tatiana perf SPECT r/s* [id number] Deja Siegel Age: 88 Gender: F : 1935 Exam Date: 09/20/2024 08:21 Ordering Phys: Nick Kraft MD ([email or web address]) Technologist: PETER Montero Exam Location: [facility] Indications: cp STRESS TEST Please see separate stress test report in [facility] for full findings IMAGE PROTOCOL Rest/Stress 1 Lexiscan Day Radiopharmaceutical Dose (mCi) Administration Site Administered by Rest: Tc-99m 10.9 IV PETER Montero Sestamibi Stress:Tc-99m 32.8 IV Terra Goodman, MONOTYPE OPERATOR Sestamibi Rest: 20-Sep-2024 60 Discovery 630 Stress: 20-Sep-2024 30 Discovery 630 0.4mg Lexiscan. Images obtained in supine and prone position. SPECT RESULTS Technical Quality: Good Raw Data Analysis: Normal Image Corrections: No attenuation or motion correction applied Summed Stress Score: 5 Summed Rest Score: 5 Summed Difference Score: 0 PERFUSION FINDINGS SPECT images demonstrate homogeneous tracer distribution throughout the myocardium. FUNCTIONAL RESULTS (calculated via Gated SPECT) Stress Image LV EF (%): 77 Stress EDV (mL):66 TID: 1.32 Stress ESV (mL):15 Rest Image LV EF (%): 60 FUNCTIONAL FINDINGS: There is normal left ventricular systolic function. IMPRESSIONS Myocardial perfusion imaging is normal. Brennan Merrill MD (Electronically Signed) Final Date: 21 September 2024 17:21 S
[2024-09-20 07:33] VITALS: BMI 28.1
[2024-09-20 09:28] VITALS: BP 152/54; PULSE 84
== END 2024-09-20 07:09 | disposition home or self-care (01) ==
LOC: CDL 07:09
PROVIDERS: PCP Family Medicine; Visit Provider Internal Medicine Cardiovascular Disease
DX: R07.9 Chest pain, unspecified (principal); R93.1 Abnormal findings on diagnostic imaging of heart and coronary circulation
CPT/HCPCS: 36415; 78452; 93017; 96374; A9500; J2785